=== PATIENT | female | born 1955 | race Caucasian/White ===

== ENCOUNTER 2019-11-25 00:49 | Emergency (ER) | payer OTHER ==
[2019-11-25 01:44] VITALS: BMI 26.6
--- NOTE | 2019-11-25 01:49 | PDOC ---
History of Present Illness - General Chief Complaint: Pain, Acute Stated Complaint: ABD PAIN Time Seen by Provider: 11/25/19 01:46 History Source: Patient Exam Limitations: No Limitations - History of Present Illness Initial Comments: 11/25/19 01:48 Shanika Harman is a 64 Swedish-speaking female with PMH HTN, DM, prior head surgery presenting with abdominal pain and vomiting. Patient presents with sons at bedside. Reports that starting around 8PM last night began to have new onset sharp RLQ pain with nausea and NBNB vomiting x5. Today ate some rice and beef with family and no other family members sick, no pain associated with meal. Says that abdominal pain is 10/10 and has not had any abdominal surgeries, normal BM, no constipation/diarrhea. Denies chest pain , SOB, palpitations, [place], dizziness. Denies urinary symptoms. Has had some chills but no fever. [facility] brain operation in [facility] [place], family unsure what the procedure was for Past History - Past Medical History Allergies/Adverse Reactions: Allergies Allergy/AdvReac Type Severity Reaction Status Date / Time No Known Allergies Allergy Verified 11/25/19 01:43 - Psycho Social/Smoking Cessation Hx Smoking History: Never smoked Have you smoked in the past 12 months: No Information on smoking cessation initiated: No Hx Alcohol Use: No Drug/Substance Use Hx: No Review of Systems - Review of Systems Able to Perform ROS?: Yes Constitutional: Yes: Chills. No: Fever HEENTM: No: Symptoms Reported Respiratory: No: Cough, Shortness of Breath Cardiac (ROS): No: Chest Pain, Irregular Heart Rate, Lightheadedness, Palpitations, Chest Tightness ABD/GI: Yes: Nausea, Poor Appetite, Poor Fluid Intake, Vomiting, Other ( abdominal pain). No: Constipated, Diarrhea : No: Symptoms Reported Musculoskeletal: No: Symptoms Reported Integumentary: No: Symptoms Reported Neurological: No: Symptoms reported Endocrine: No: Symptoms Reported Hematologic/Lymphatic: No: Symptoms Reported All Other Systems: Reviewed and Negative *Physical Exam - Vital Signs Last Vital Signs Temp Pulse Resp BP Pulse Ox 98.2 F 84 20 125/72 96 11/25/19 01:43 11/25/19 01:43 11/25/19 01:43 11/25/19 01:43 11/25/19 01:43 - Physical Exam General Appearance: Yes: Nourished, Appropriately Dressed, Moderate Distress, Obese HEENT: positive: EOMI, BRII, Normal Voice, Symmetrical, Pharynx Normal. negative: Scleral Icterus (R), Scleral Icterus (L), Pharyngeal Erythema, Tonsillar Exudate, Tonsillar Erythema Neck: positive: Trachea midline, Normal Thyroid, Supple. negative: Tender, Rigid, Lymphadenopathy (R), Lymphadenopathy (L) Respiratory/Chest: positive: Lungs Clear, Normal Breath Sounds. negative: Chest Tender, Respiratory Distress, Accessory Muscle Use, Decreased Breath Sounds, Crackles, Rales, Rhonchi, Stridor, Wheezing Cardiovascular: positive: Regular Rhythm, Regular Rate. negative: Murmur Gastrointestinal/Abdominal: positive: Normal Bowel Sounds, Tender (RLQ, negative Soares sign), Soft, Protuberent. negative: Guarding, Rebound Musculoskeletal: positive: Normal Inspection. negative: CVA Tenderness, Vertebral Tenderness Extremity: positive: Normal Capillary Refill, Normal Inspection, Normal Range of Motion, Pelvis Stable. negative: Tender, Swelling, Calf Tenderness Integumentary: positive: Normal Color, Dry, Warm. negative: Cold, Clammy Neurologic: positive: Fully Oriented, Alert, Normal Mood/Affect, Normal Response , Motor Strength 5/5 ED Treatment Course - LABORATORY CBC & Chemistry Diagram: 11/25/19 02:20 11/25/19 02:20 Medical Decision Making - Medical Decision Making 11/25/19 05:03 Patient has history of HTN, DM presenting with new onset nausea and vomiting a few hours after eating rice and beef, no sick contacts at home, denies any chest pain or SOB. VS stable, afebrile, no tachycardia. Concern for appendicitis , gastroenteritis, pancreatitis, or GB pathology. - CMP/CBC for eval lytes/infection - lipase for pancreatitis eval - CP for atypical chest pain eval - Coags for INR eval - UA/UC for UTI eval - 1L NS for rehydration, 4mg morphine for pain 11/25/19 06:50 Labs notable for: - WBC 17.7 - lipase normal - CMP WNL Pending CTAP. Signed out to day team, plan to f/u CTAP and dispo appropriately based on findings. Discharge - Discharge Information Problems reviewed: Yes Clinical Impression/Diagnosis: Abdominal pain Qualifiers: Abdominal location: right lower quadrant Qualified Code(s): R10.31 - Right lower quadrant pain Condition: Stable - Follow up/Referral Referrals: Estephania Faria DO [Primary Care Provider] - - Patient Discharge Instructions - Post Discharge Activity
--- NOTE | 2019-11-25 01:56 | PDOC ---
Attending Attestation - Resident Resident Name: Jorge Baca - ED Attending Attestation I have performed the following: I have examined & evaluated the patient, The case was reviewed & discussed with the resident, I agree w/resident's findings & plan - HPI HPI: 11/25/19 03:41 Pt comes withright sided abd pain that began today around 7PM; she ate rice and meat today at 2PM; family ate the same stuff and she is the only one with pain and vomiting. SHe has had this in the past when she ate cheese; she has lactose intolerance. Pt is afebrile SHe has no hx of surgeries, other than some sort of cranial surg. She has DM, HTN, Cholesterol SHe has no ill contacts. She didn't get her flu shot this yr. - Physicial Exam PE: 11/25/19 03:44 Afebrile heart normal lungs clear abd lower abd tenderness; possible appendicitis pt has no flank pain no rashes she has no pitting edema. - Medical Decision Making 11/25/19 03:44 WBC 17; Gr is 87% 11/25/19 03:45 chem is pending 11/25/19 03:46 UA pending 11/25/19 05:24 CHem is finally back and normal; she will go for CT abd pelvis with IV contrast 11/25/19 06:[address] scan pending. will be signed out to the day docs.
[2019-11-25] MEDS ORDERED: SODIUM CHLORIDE 0.9% 500 ML INFUS.BAG IV ONE (02:04)
[2019-11-25 02:48] LABS: BASO % 0.2 % (0-2.0); EOS % 0.7 % (0-4.5); HEMATOCRIT 40.1 % (32.4-45.2); HEMOGLOBIN 13.5 GM/dL (10.7-15.3); MCH 31.9 pg (25.7-33.7); MCHC 33.6 g/dl (32.0-36.0); MEAN CELL VOLUME 94.7 fl (80-96); MEAN PLT VOLUME 8.1 fl (7.5-11.1); MONO % 4.9 % (3.8-10.2); NEUT % 87.2 % (42.8-82.8); PLATELET COUNT 242 K/MM3 (134-434); RBC 4.23 M/mm3 (3.60-5.2); RDW 13.8 % (11.6-15.6); WHITE BLOOD COUNT 17.7 K/mm3 (4.0-10.0)
[2019-11-25] MEDS ORDERED: morphine CARPU-JECT 4 MG/1 ML DISP.SYRIN IVPUSH ONE (02:52)
[2019-11-25] MEDS ORDERED: morphine SULFATE 4 MG/ML VIAL ONE (03:10)
[2019-11-25 04:31] LABS: BLOOD UREA NITROGEN 21.6 mg/dL (7-18); GLUCOSE,RANDOM 147 mg/dL (74-106)
[2019-11-25 04:32] LABS: CALCIUM 10.1 mg/dL (8.5-10.1); CHLORIDE 102 mmol/L (98-107); CO2 28 mmol/L (21-32); CREATININE 0.8 mg/dL (0.55-1.3); POTASSIUM 3.9 mmol/L (3.5-5.1); SODIUM 137 mmol/L (136-145)
[2019-11-25 04:33] LABS: ALBUMIN 3.9 g/dl (3.4-5.0); BILIRUBIN,TOTAL 0.4 mg/dL (0.2-1); SGOT/AST 14 U/L (15-37); SGPT/ALT 24 U/L (13-61); TOT PROT 7.9 g/dl (6.4-8.2)
[2019-11-25 06:20] LABS: ALK PHOS 101 U/L (45-117); ANION GAP 8 MMOL/L (8-16); LIPASE 244 U/L (73-393)
[2019-11-25 07:05] LABS: EPI CELLS 2.6 /HPF (0-5/HPF); HYALINE CASTS 2 /lpf (0-8); URINE APPEARANCE CLEAR; URINE BACTERIA 38.4 /hpf (NEGATIVE); URINE BILIRUBIN NEGATIVE (NEGATIVE); URINE COLOR YELLOW; URINE GLUCOSE (UA) NEGATIVE (NEGATIVE); URINE KETONE NEGATIVE (NEGATIVE); URINE LEUK ESTERASE 1+ (NEGATIVE); URINE NITRITE NEGATIVE (NEGATIVE); URINE PROTEIN NEGATIVE (NEGATIVE); URINE RBC 2 /hpf (0-4); URINE UROBILINOGEN 0.2 mg/dL (0.2-1.0); URINE WBC 2 /hpf (0-5)
[2019-11-25 07:28] VITALS: BP 122/85; PULSE 72; TEMP 97.7
--- NOTE | 2019-11-25 08:07 | PDOC ---
*Physical Exam - Vital Signs Last Vital Signs Temp Pulse Resp BP Pulse Ox 97.7 F 72 18 122/85 100 11/25/19 06:50 11/25/19 06:50 11/25/19 06:50 11/25/19 06:50 11/25/19 06:50 ED Treatment Course - LABORATORY CBC & Chemistry Diagram: 11/25/19 02:20 11/25/19 02:20 - ADDITIONAL ORDERS Additional order review: Laboratory Results 11/25/19 11/25/19 11/25/19 06:30 02:20 02:20 Sodium Potassium Chloride Carbon Dioxide Anion Gap BUN Creatinine Est GFR (CKD-EPI)AfAm Est GFR (CKD-EPI)NonAf Random Glucose Lactic Acid 1.3 Calcium Total Bilirubin AST ALT Alkaline Phosphatase Creatine Kinase Creatine Kinase Index Cancelled CK-MB (CK-2) Cancelled Troponin I Total Protein Albumin Lipase Urine Color Yellow Urine Appearance Clear Urine pH 7.0 Ur Specific [place] 1.017 Urine Protein Negative Urine Glucose (UA) Negative Urine Ketones Negative Urine Blood Negative Urine Nitrite Negative Urine Bilirubin Negative Urine Urobilinogen 0.2 Ur Leukocyte Esterase 1+ H Urine WBC (Auto) 2 Urine RBC (Auto) 2 Urine Casts (Auto) 2 U Epithel Cells (Auto) 2.6 Urine Bacteria (Auto) 38.4 11/25/19 02:20 Sodium 137 Potassium 3.9 Chloride 102 Carbon Dioxide 28 Anion Gap 8 BUN 21.6 H Creatinine 0.8 Est GFR (CKD-EPI)AfAm 89.04 Est GFR (CKD-EPI)NonAf 76.83 Random Glucose 147 H Lactic Acid Calcium 10.1 Total Bilirubin 0.4 AST 14 L ALT 24 Alkaline Phosphatase 101 Creatine Kinase 192 Creatine Kinase Index 1.4 CK-MB (CK-2) 2.8 Troponin I < 0.02 Total Protein 7.9 Albumin 3.9 Lipase 244 Urine Color Urine Appearance Urine pH Ur Specific [place] Urine Protein Urine Glucose (UA) Urine Ketones Urine Blood Urine Nitrite Urine Bilirubin Urine Urobilinogen Ur Leukocyte Esterase Urine WBC (Auto) Urine RBC (Auto) Urine Casts (Auto) U Epithel Cells (Auto) Urine Bacteria (Auto) 11/25/19 02:20 RBC 4.23 MCV 94.7 MCHC 33.6 RDW 13.8 MPV 8.1 Neutrophils % 87.2 H Lymphocytes % 7.0 L Monocytes % 4.9 Eosinophils % 0.7 Basophils % 0.2 - Medications Given in the ED: ED Medications Discontinued Medications Generic Name Dose Route Start Last Admin Trade Name Meredith PRN Reason Stop Dose Admin Morphine Sulfate 4 mg 11/25/19 02:52 11/25/19 03:30 Morphine Injection - IVPUSH 11/25/19 02:53 4 mg ONCE ONE Administration Sodium Chloride 500 ml 11/25/19 02:04 11/25/19 02:44 Normal Saline - IV 11/25/19 02:05 500 ml ONCE ONE Administration Medical Decision Making - Medical Decision Making 11/25/19 07:58 Signed out from AM team Patient has history of HTN, DM presenting with new onset nausea and vomiting a few hours after eating rice and beef, no sick contacts at home, denies any chest pain or SOB. VS stable, afebrile, no tachycardia. Concern for appendicitis , gastroenteritis, pancreatitis, or GB pathology. CT results negative for appendicitis or other pathology UA with negative for UTI Discussed with patient regarding results and admission for serial abdominal exam ; patient symptoms improved with no symptoms of nausea or emesis; reports would prefer going home; discussed strict return pcxns including fever, worsening abd pain, persistent emesis She and brother are comfortable with DC instructions Pending CXR will DC home with PCP followup 11/25/19 08:44 CXR negative will DC home Discharge - Discharge Information Problems reviewed: Yes Clinical Impression/Diagnosis: Abdominal pain Qualifiers: Abdominal location: right lower quadrant Qualified Code(s): R10.31 - Right lower quadrant pain Condition: Stable - Additional Discharge Information Prescriptions: Acetaminophen [Tylenol] 650 mg PO QID #30 tablet Ibuprofen 600 mg PO QID #30 tablet - Follow up/Referral Referrals: Estephania Faria DO [Primary Care Provider] - - Patient Discharge Instructions Patient Printed Discharge Instructions: DI for Abdominal Pain-Adult Additional Instructions: Additional Instructions: Please return to the emergency department with any new or worsening symptoms or concerns including fever, worsening abdominal pain, persistent vomiting, fainting. Please follow up with your primary care physician within 2-3 days for re- evaluation You may take 650mg tylenol every 6 hours and ibuprofen 600mg every 6 hours for pain control. You may alternate the medications for example, tylenol at 9am, ibuprofen at noon, tylenol at 3pm, ibuprofen at 6pm, etc Instrucciones adicionales: Regrese al departamento de emergencias con cualquier sntoma o inquietud nueva o que empeore, incluyendo fiebre, empeoramiento del dolor abdominal, vmitos persistentes, desmayos. Kennedy un seguimiento con salas mdico de atencin primaria dentro de los 2-3 manzanares para la reevaluacin Puede roxana 650 mg de tylenol cada 6 horas e 600 mg de ibuprofeno cada 6 horas para controlar el dolor. Puede alternar los medicamentos, por ejemplo, tylenol a las 9 a.m., ibuprofeno al medioda, tylenol a las 3 p.m., ibuprofeno a las 6 p.m., etc. Print Language: GRENADIAN - Post Discharge Activity
== END 2019-11-25 09:15 | disposition home or self-care (01) ==
LOC: JER 00:49
PROC: 3E033NZ Introduction of Analgesics, Hypnotics, Sedatives into Peripheral Vein, Percutaneous Approach (ICD-10-PCS; principal; 2019-11-25)
DX: R10.31 Right lower quadrant pain (principal); I10 Essential (primary) hypertension; E11.9 Type 2 diabetes mellitus without complications
CPT/HCPCS: 36415; 71045-TC-FY; 74176-TC; 80053; 81003; 82550; 82553; 83605; 83690; 84484; 85025; 87086; 96374; 99282-25